=== PATIENT | male | born 1975 | race Caucasian/White ===

== ENCOUNTER 2024-01-21 13:52 | Outpatient (OUT) | payer OTHER, SELFPAY ==
--- NOTE | 2024-01-21 | XR_ITS ---
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 CLINICAL INDICATION: 48 years Male spondylosis of sacral sacrococcygeal region FINDINGS: There is no evidence of fractures , subluxation or other acute osseous abnormalities. Specifically, there is no evidence of dynamic subluxation on lateral flexion and extension views. There is mild scattered intervertebral disc space degenerative changes best seen at L2-L3. There is mild mid and lower lumbar spine facet degenerative changes. There is evidence of moderate colonic stool best seen right colon Sacroiliac joints show no abnormalities. XR/XR lumbar spine min 4V IMPRESSION: These radiographic views of the lumbar spine show no evidence of acute abnormalities. Mild scattered degenerative spondylosis. Electronically authenticated by: MAGDY KURTZ Date: 01/21/2024 15:48
--- NOTE | 2024-01-21 | XR_ITS ---
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 CLINICAL INDICATION: 48 years Male neck pain FINDINGS: There is no evidence of fractures , subluxation or other acute osseous abnormalities. Specifically, there is no evidence of dynamic subluxation on lateral flexion and extension views. There is some limitation in evaluating the cervical thoracic junction and lateral view due to overlying bone and soft tissues of the shoulders. There is mild to moderate degenerative disc change at C5-6 level. There is mild multilevel cervical facet degenerative changes. The visualized soft tissue show no abnormalities in these projections. XR/XR cervical spine w flex/ext IMPRESSION: These radiographic views of the cervical spine show no evidence of acute abnormalities. Mild to moderate C5-6 degenerative disc changes. Scattered facet degenerative changes. No other abnormalities identified. Electronically authenticated by: MAGDY KURTZ Date: 01/21/2024 15:34
== END 2024-01-21 13:53 | disposition home or self-care (01) ==
PROVIDERS: Visit Provider Anesthesiology
DX: M47.818 Spondylosis without myelopathy or radiculopathy, sacral and sacrococcygeal region (principal); M46.1 Sacroiliitis, not elsewhere classified; M47.817 Spondylosis without myelopathy or radiculopathy, lumbosacral region; M54.2 Cervicalgia
CPT/HCPCS: 72052; 72110

== ENCOUNTER 2025-04-02 03:44 | Emergency (ER) | payer OTHER, SELFPAY ==
[2025-04-02 03:51] VITALS: BP 170/100; PULSE 71; TEMP 36.7; O2SAT 97; BMI 26.6
--- OUTSIDE RECORDS SUMMARY | 2025-04-02 03:54 | XMS_ITS | CCD ---
Author Organization [facility] Care Team Providers Care Environmental Sampling Technician Name Role Phone JEFF ADAN Admitting Unavailable JEFF ADAN Attending Unavailable REQUEST, NONE LISTED Primary Care Unavailable LIDA COLLADO Admitting Unavailable LIDA COLLADO Attending Unavailable LIDA COLLADO Consulting Unavailable REQUEST, NONE LISTED Primary Care Unavailable ZEHRA ARAUJO Admitting Unavailable ZEHRA ARAUJO Attending Unavailable ONELIA HOUGH Consulting Unavailable ZEHRA ARAUJO Consulting Unavailable Jeff Adan Unavailable [facility] Primary Care Provider MD Jeff Adan Attending Provider [facility] Primary Care Provider Jeff Adan MD Attending Provider Jeff Adan Attending Unavailable Jeff Adan Admitting Unavailable [facility] Primary Care Unavaila ble Allergies Allergy Classification Reported Allergen(s) Allergy Type Date of Onset Reaction(s) Facility (5 sources) Acetaminophen / HYDROcodone Drug Allergy stomach upset [facility] Other (4 sources) Acetaminophen Drug Allergy 06-09-20 20 Gastrointestinal Upset, Gastrointestinal Upset, stomach upset [facility] (5 sources) HYDROcodone; Translations: [hydrocodone] Drug Allergy 06-09-20 20 Gastrointestinal Upset, Gastrointestinal Upset, stomach upset [facility] Medications Current Medications Medication Drug Class(es) Dates Sig (Normalized) Sig (Original) [place] (No Known Home Meds) (5 sources) Start: 06-09-2020 [place] (No Known Home Meds) Active June 09, 2020 12:00am Start: 06-09-2020 [place] (No Kn own Home Meds) Active June 08, 2020 11:00pm Completed/Discontinued Medications Medication Drug Class(es) Dates Sig (Normalized) Sig (Original) acetaminophen 325 mg / HYDROcodone bitartrate 5 mg oral tablet (5 sources) Opioid Agonist Start: 11-08-2017 End: 12-29-2017 Hydrocodone-Aceta minophen ([place]) 5-325 mg tablet Discontinued 1 TAB PO every 6 to 8 hours as needed for pain November 08, 2017 December 29, 2017 9:28am acetaminophen 325 mg / oxyCODONE hydrochloride 5 mg oral tablet (5 sources) Opioid Agonist Start: 06-09-2020 End: 12-28-2022 take 1 tablet by mouth every six hours as needed for pain Oxycodone-Acetami nophen (Percocet) 5-325 mg tablet Discontinued 1 TAB PO Q6H as needed for pain 5 June 09, 2020 December 28, 2022 10:16am acyclovir 800 mg oral tablet (5 sources) Herpesvirus Nucleoside Analog DNA Polymerase Inhibitor, Herpes Simplex Virus Nucleoside Analog DNA Polymerase Inhibitor, Herpes Zoster Virus Nucleoside Analog DNA Polymerase Inhibitor Start: 03-31-2018 End: 04-10-2018 take 5 tablets by mouth every twenty-four hours Acyclovir 800 mg tablet Discontinued 800 MG PO 5 times per day 50 March 30, 2018 11:00pm April 08, 2018 11:00pm April 09, 2018 11:01pm while awake; give 5 doses in 24 hours atomoxetine 60 mg oral capsule (5 sources) Norepinephrine Reuptake Inhibitor Start: 05-02-2018 End: 06-15-2018 take 1 capsule by mouth once daily Atomoxetine (Strattera) 60 mg Capsule Discontinued 60 MG PO Daily May 01, 2018 11:00pm June 15, 2018 7:56am cephalexin 500 mg oral capsule (10 sources) Cephalosporin Antibacterial Start: 06-24-2019 End: 06-09-2020 take 1 capsule by mouth three times daily Cephalexin 500 mg Capsule Discontinued 500 MG PO Three times daily June 23, 2019 11:00pm June 09, 2020 11:46am Start: 05-03-2018 End: 05-10-2018 take 1 capsule by mouth four times daily Cephalexin (Keflex) 500 mg capsule Discontinued 500 MG PO Four times daily 28 May 02, 2018 11:00pm May 08, 2018 11:00pm May 09, 2018 11:02pm cyclobenzaprine hydrochloride 10 mg oral tablet (5 sources) Muscle Relaxant Start: 10-13-2017 End: 11-08-2017 take 1 tablet by mouth three times daily as needed for muscle spasms Cyclobenzaprine 10 mg tablet Discontinued 10 MG PO Three times daily as needed for muscle spasm October 13, 2017 12:00am November 08, 2017 10:48am dicloxacillin 500 mg oral capsule (5 sources) Penicillin-class Antibacterial Start: 11-08-2017 End: 11-18-2017 take 1 capsule by mouth every six hours Dicloxacillin 500 mg capsule Discontinued 500 MG PO Q6H 40 November 08, 2017 12:00am November 17, 2017 12:00am November 18, 2017 12:03am naproxen 500 mg oral tablet (10 sources) Nonsteroidal Anti-inflammatory Drug Start: 10-13-2017 End: 12-29-2017 take 1 tablet by mouth every twelve hours at mealtime Naproxen (Naprosyn) 500 mg tablet Discontinued 500 MG PO Q12H November 08, 2017 12:00am December 29, 2017 9:28am administer with food or milk NIFEdipine 60 mg osmotic 24 hr extended release oral tablet (5 sources) Dihydropyridine Calcium Channel Radha Start: 09-01-2017 End: 06-15-2018 take 1 tablet by mouth once daily Nifedipine 60 mg tablet extended release 24hr Discontinued 60 MG PO Daily August 31, 2017 11:00pm June 15, 2018 7:56am omeprazole 40 mg delayed release oral capsule (5 sources) Proton Pump Inhibitor Start: 09-01-2017 End: 06-15-2018 take 1 capsule by mouth once daily Omeprazole 40 mg capsule,delayed release(DR/EC) Discontinued 40 MG PO Daily August 31, 2017 11:00pm June 15, 2018 7:57am oxyCODONE hydrochloride 1 mg/ml oral solution (5 sources) Opioid Agonist Start: 04-02-2018 End: 05-02-2018 take 5 mg by mouth every four to six hours as needed for pain Oxycodone 5 mg/5 mL solution Discontinued 5 MG PO EVERY 4-6 HOURS as needed for pain 200 April 02, 2018 May 02, 2018 10:37pm PARoxetine hydrochloride 40 mg oral tablet (5 sources) Serotonin Reuptake Inhibitor Start: 09-01-2017 End: 06-15-2018 Paroxetine Hcl 40 mg tablet Discontinued 20 MG PO Daily August 31, 2017 11:00pm June 15, 2018 7:57am Start: 09-01-2017 End: 06-15-2018 take 20 mg by mouth once daily Paroxetine Hcl Disconti nued 20 MG PO Daily September 01, 2017 12:00am June 15, 2018 8:57am predniSONE 20 mg oral tablet (5 sources) Start: 10-13-2017 End: 11-08-2017 take 3 tablets by mouth once daily at mealtime Prednisone 20 mg tablet Discontinued 60 MG PO Daily October 13, 2017 12:00am November 08, 2017 10:48am administer with food or milk Start: 10-13-2017 End: 11-08-2017 take 60 mg by mouth once daily at mealtime Prednisone Discontinued 60 MG PO Daily October 13, 2017 1:00am November 08, 2017 11:48am administer with food or milk sulfamethoxazole 800 mg / trimethoprim 160 mg oral tablet (10 sources) Dihydrofolate Reductase Inhibitor Antibacterial, Sulfonamide Antimicrobial Start: 06-09-2020 End: 12-28-2022 take 1 tablet by mouth twice daily Sulfamethoxazole-Trimethoprim (Bactrim Ds) 800-160 mg tablet Discontinued 1 TAB PO Twice daily June 08, 2020 11:00pm December 28, 2022 10:16am Start: 06-24-2019 End: 06-09-2020 take 1 tablet by mouth every twelve hours Sulfamethoxazole-Trimethoprim 400-80 mg Tablet Discontinued 1 TAB PO Q12H June 23, 2019 11:00pm June 09, 2020 11:46am Triamcinolone (2 sources) Corticosteroid Start: 02-04-2020 Kenalog -40 mg Jan, 60 mg Problems Problem Classification Problem Date Documented Date Episodic/Chronic External cause codes: Fall (1 source) Fall (on) (from) unspecified stairs and steps, initial encounter; Translations: [FALL ON FROM UNS STAIRS STEPS INIT] Onset: 06-26-2020 Open wounds of extremities (5 sources) Laceration of right lower leg; Translations: [Laceration without foreign body, right lower leg, initial encounter] 09-01-2017 Episodic Osteoarthritis (8 sources) Osteoarthritis of right acromioclavicular joint; Translations: [Primary osteoarthritis, right shoulder] 01-08-2024 Chronic Other connective tissue disease (8 sources) Myofascial pain; Translations: [Myalgia] 01-08-2024 Episodic Other connective tissue disease (5 sources) Rotator cuff syndrome; Translations: [Incomplete rotator cuff tear or rupture of right shoulder, not specified as traumatic] Episodic Other connective tissue disease (5 sources) Bursitis of elbow; Translations: [Other bursitis of elbow, unspecified elbow] 11-08-2017 Episodic Other connective tissue disease (3 sources) Partial thickness rotator cuff tear; Translations: [Incomplete rotator cuff tear or rupture of right shoulder, not specified as traumatic] 01-08-2024 Episodic Other nervous system disorders (8 sources) Chronic pain; Translations: [Other chronic pain] 01-12-2024 Chronic Other nervous system disorders (6 sources) Other chronic pain; Translations: [Other chronic pain] Onset: 12-06-2021 Resolved: 12-06-2021 Chronic Other non-traumatic joint disorders (3 sources) Pain in right wrist; Translations: [PAIN IN RIGHT WRIST] Onset: 06-24-2020 Episodic Other non-traumatic joint disorders (5 sources) Shoulder joint pain; Translations: [Pain in right shoulder] Episodic Other non-traumatic joint disorders (5 sources) Pain in right hip joint; Translations: [Pain in right hip] Episodic Other non-traumatic joint disorders (5 sources) Arthralgia of the pelvic region and thigh; Translations: [Pain in left hip] Episodic Skin and subcutaneous tissue infections (15 sources) Cutaneous abscess of buttock; Translations: [Cellulitis of buttock] Onset: 03-14-2020 06-24-2019 Episodic Spondylosis; intervertebral disc disorders; other back problems (20 sources) Lumbosacral spondylosis; Translations: [Spondylosis without myelopathy or radiculopathy, lumbosacral region] Onset: 12-06-2021 Resolved: 12-06-2021 Chronic Spondylosis; intervertebral disc disorders; other back problems (13 sources) Low back pain; Translations: [Low back pain] Onset: 02-14-2020 01-12-2024 Episodic Sprains and strains (6 sources) Unspecified sprain of right wrist, initial encounter; Translations: [Shoulder strain] Onset: 06-26-2020 10-13-2017 Episodic Substance-related disorders (1 source) Nicotine dependence, cigarettes, uncomplicated; Translations: [NICOTINE DEPEND CIGARETTES UNCOMP] Onset: 06-26-2020 Chronic Superficial injury; contusion (5 sources) Right lower leg contusion; Translations: [Contusion of right lower leg, initial encounter] 09-01-2017 Episodic Results Test Name Value Interpretation Reference Range Facil ity Consultation Noteon 01-25-20 Consultation Note [id number] .[id number]:127 Normal [facility] RAD - Ultrasound Reporton RAD - Ultrasound Report [id number] .[id number]:127 Normal [facility] Formson 01-21-2022 Forms [id number] .[id number]:127 Normal [facility] Patient Educationon 01-11-20 Patient Education Urology Testicular Self-Exam A self-exam of your testicles (testicular self-exam) is looking at and feeling your testicles for unusual lumps or swelling. Swelling, lumps, or pain can be caused by: ? Injuries. ? Puffiness, redness, and soreness (inflammation). ? Infection. ? Extra fluids around your testicle (hydrocele). ? Twisted testicles (testicular torsion). ? Cancer of the testicle (testicular cancer). Why is it important to do a self-exam of testicles? You may need to do self-exams if you are at risk for cancer of the testicles. You may be at risk if you have: ? A testicle that has not descended (cryptorchidism). ? A history of cancer of the testicle. ? A family history of cancer of the testicle. How to do a self-exam of testicles It is easiest to do a self-exam after a warm bath or shower. Testicles are harder to examine when you are cold. A normal testicle is egg-shaped and feels firm. It is smooth, and it is not tender. At the back of your testicles, there is a firm cord that feels like spaghetti (spermatic cord). Look and feel for changes ? Stand and hold your penis away from your body. ? Look at each testicle to check for lumps or swelling. ? Roll each testicle between your thumb and finger. Feel the whole testicle. Feel for: ? Lumps. ? Swelling. ? Discomfort. ? Check for swelling or tender bumps in the groin area. Your groin is where your lower belly (abdomen) meets your upper thighs. Contact a health care provider if: ? You find a bump or lump. This may be like a small, hard bump that is the size of a pea. ? You find swelling. ? You find pain. ? You find soreness. ? You see or feel any other changes. Summary ? A self-exam of your testicles is looking at and feeling your testicles for lumps or swelling. ? You may need to do self-exams if you are at risk for cancer of the testicle. ? You should check each of your testicles for lumps, swelling, or discomfort. ? You should check for swelling or tender bumps in the groin area. Your groin is where your lower belly (abdomen) meets your upper thighs. This information is not intended to replace advice given to you by your health care provider. Make sure you discuss any questions you have with your health care provider. Document Released: 02/02/2010 Document Revised: 02/27/2020 Document Reviewed: 10/02/2017 Desk Patient Education ? 2020 [employer]. Varicocele A varicocele is a swelling of veins in the scrotum. The scrotum is the sac that contains the testicles. Varicoceles can occur on either side of the scrotum, but they are more common on the left side. They occur most often in teenage boys and young men. In most cases, varicoceles are not a serious problem. They are usually small and painless and do not require treatment. Tests may be done to confirm the diagnosis. Treatment may be needed if: ? A varicocele is large, causes a lot of pain, or causes pain when exercising. ? Varicoceles are found on both sides of the scrotum. ? A varicocele causes a decrease in the size of the testicle in a growing adolescent. ? The person has fertility problems. What are the causes? This condition is the result of valves in the veins not working properly. Valves in the veins help to return blood from the scrotum and testicles to the heart. If these valves do not work well, blood flows backward and backs up into the veins, which causes the veins to swell. This is similar to what happens when varicose veins form in the leg. What are the signs or symptoms? Most varicoceles do not cause any symptoms. If symptoms do occur, they may include: ? Swelling on one side of the scrotum. The swelling may be more obvious when you are standing up. ? A lumpy feeling in the scrotum. ? A heavy feeling on one side of the scrotum. ? A dull ache in the scrotum, especially after exercise or prolonged standing or sitting. ? Slower growth or reduced size of the testicle on the side of the varicocele (in young males). ? Problems with fathering a child (fertility). This can occur if the testicle does not grow normally or if the condition causes problems with the sperm, such as a low sperm count or sperm that are not able to reach the egg (poor motility). How is this diagnosed? This condition is diagnosed based on: ? Your medical history. ? A physical exam. Your health care provider may inspect and feel (palpate) the scrotal area to check for swollen or enlarged veins. ? An ultrasound. This may be done to confirm the diagnosis and to help rule out other causes of the swelling. How is this treated? Treatment is usually not needed for this condition. If you have any pain, your health care provider may prescribe or recommend medicine to help relieve it. You may need regular exams so your health care provider can monitor the varicocele to ensure that it does not cause problems. When further treatment (more content not included)... [facility] Provider Letteron 01-11-2022 Provider Letter January 11, 2022 JOSSE CARDONA [address] [place] [address] JOSSE CARDONA 1975 To Whom It May Concern, Please excuse above patient from work. Date of Appointment: 01/11/22 May Return to Work On: 01/11/22 Sincerely, [facility] [address] [place] [address] [facility] Urology Office/Clinic Noteon 01-11-2022 Urology Office/Clinic Note Chief Complaint Pt is here for left varicocele HPI Staff Josse is a 46 y.o. male new patient here for possible varicocele. Referred by Tigre Rolle. Pt seen DLS in 2011 for left varicocele. Pt states he wears compression shorts to help. Scrotal US [facility] [place] [place]. Dysuria: denies Incomplete bladder emptying: denies Hematuria: denies Frequency: yes due to fluid intake Urgency: denies Nocturia: 1x on occasion Stream: hesitant to start Leaking: denies Post void dripping: denies Wearing pads/ Depends: denies Urge incontinence: denies Stress incontinence: denies Incontinence without Sensory Awareness: denies Abdominal pain: denies Flank pain: denies Sexual complaints: _ History of Present Illness Pt is here for referral for possible varicocele. Pt had Scrotal US 08/2021 Pt is having Left scrotal pain that has been going on for a few years. Pt did not give urine sample Pt has no associated symptoms, no fever, no chills, no flank pain. Review of Systems PHQ Score Initial Depression Screen Score: 0 ROS - Provider Constitutional: denies weight loss, denies hot flashes. Eyes: denies eye problems. Gastrointestinal: denies nausea, denies vomiting. Cardiovascular: denies chest pain or angina. Integumentary: no dryness Musculoskeletal: denies musculoskeletal symptoms. ENMT: denies otolaryngeal symptoms. Respiratory: no shortness of breath. Heme/Lymph: denies easy bleeding tendency, denies easy bruising tendency. Psychiatric: no confusion, no anxiety. Genitourinary: denies dysuria, denies hematuria, denies discharge, denies urinary frequency, denies urinary hesitancy, mild nocturia, denies incontinence, denies genital sores, denies decreased libido, and denies erectile dysfunction. Physical Exam Vitals & Measurements HR: 77(Peripheral) BP: 132/85 HT: 175.0 cm HT: 175 cm WT: 74.1 kg WT: 74.1 kg BMI: 24.2 General Appearance: alert, no distress, well nourished, well developed male. Head: normocephalic . Eyes: normal orbit and globe. ENMT: normal examination of external ears. Chest: Lungs CTA, respirations non labored. Cardiovascular: regular rate and rhythm. Abdomen: soft, non distended, no tenderness, no mass or organomegaly, no hernia. Genitourinary: normal scrotum, normal testes, normal urethra, Tender to touch on Left epididymis, normal vas deferens/spermatic cord. Flank Pain: none. Bladder: nonpalpable. Penis: normal shaft, normal glans. Prostate: normal prostate, estimated weight 35 gms, no hard nodule observed. Lymph Nodes: unremarkable palpation of the cervical area. Skin: warm, dry, no bruising. Psychiatric: cooperative, affect appropriate for age, normal judgement, euthymic mood. Assessment/Plan Pt will call with update in a couple weeks. May refer pt to [facility]. 1. Epididymitis (N45.1: Epididymitis) Left sided, tender to touch The patient possibly has epididymitis. Anti-inflammatory medicines can also be helpful. Pt should continue to wear scrotal support. Hot baths are also helpful in easing the discomfort. 2. 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 Donahue. Pt has been wearing scrotal support to help with pain 3. Scrotal pain (N50.82: Scrotal pain) Pt to continue to wear scrotal support The patient will add Aleve for a couple weeks. The patient had scrotal ultrasound performed back in August 2021 demonstrating a possible left-sided varicocele and a slightly larger left epididymis without any note of increased blood flow in that area. He does have a history of a left varicocelectomy performed by Dr. Donahue in the distant past as well. Overall the patient has left-sided scrotal discomfort. Unclear as to the exact etiology. The possibility of a grade 2 varicocele does exist but this is not well demonstrated on physical examination with Valsalva maneuver. He has some element of epididymal tenderness on initial examination but not consistent even with repeat palpation of the inferior pole of the left epididymis. I recommended nonsteroidal anti-inflammatories, perhaps in the form of Aleve on a twice daily basis for at least 1 to 2weeks in combination with sitz baths and some scrotal support. Due to the longevity of the patient's discomfort and previous a surgical intervention with a varicocele repair, is my recommendation that we get a second opinion. I will be calling Dr. Xavier Brooke to see who in his department he would recommend and then get back with the patient after that. Patient is in agreement with this plan. Follow-up With When Contact Information Jorge GRAYSON MD, URL Only if needed Additional Instructions: Patient Education Testicular Self-Exam, [id number] Varicocele I, Halle Rosales, personally scribed for Dr. Grayson on 01/11/2022 09:25:36. . Documentation recorded by the scribe, Halle Donald, accurately reflects the services(s) I performe (more content not included)... Normal [facility] Comment on above: Result Comment: Elec tronically Signed By: Jorge GRAYSON MD\.br\Date and Time Signed: 01/11/22 09:29 EST\.br\Electronically Co-Signed By: Halle Rosales\.br\Date and Time Co-Signed: 01/11/22 09:26 EST XR HAND RT MIN 3Von 06-24-20 20 XR HAND RT MIN 3V PROCEDURE: XR WRIST RT MIN 3 V, XR HAND RT MIN 3V HISTORY: Unspecified fall ; acute medial hand and wrist pain after falling COMPARISON: None. FINDINGS: BONES:No fracture, acute abnormality, or significant arthropathy. SOFT TISSUES:No visible soft tissue swelling. EFFUSION:None visible. OTHER: Negative. IMPRESSION: 1. No acute bone abnormality. Electronically authenticated by: ONELIA HOUGH Date: 2020-06-24 09:17 Normal [facility] CBC AUTO DIFFon 03-15-2020 Basophils (Bld) [#/Vol] 0.1 103/ul Normal 0.0-0.1 [facility] Comment on above: Performed By: #### C BC #### [facility] [address], [place] [address] Elizabeth Marleni Basophils/100 WBC (Bld) 0.5 % Normal 0.2-2.0 [facility] Comment on above: Performed By: #### C BC #### [facility] [address], [place] [address] Elizabeth Marleni Eosinophils (Bld) [#/Vol] 0.3 103/ul Normal 0.0-0.7 [facility] Comment on above: Performed By: #### C BC #### [facility] [address] [place] [address] Elizabeth Marleni Eosinophils/100 WBC (Bld) 2.0 % Normal 0.9-7.0 [facility] Comment on above: Performed By: #### C BC #### [facility] [address] [place] [address] Elizabethmichelle Barnesen Erythrocyte distribution width (RBC) [Ratio] 11.8 % Normal 11.0-15.0 [facility] Comment on above: Performed By: #### C BC #### [facility] [address] [place] [address] Elizabeth Marleni Hematocrit (Bld) [Volume fraction] 41.7 % Critically low 42.0-54.0 [facility] Comment on above: Performed By: #### C BC #### [facility] [address] [place] [address] Elizabeth Marleni Hemoglobin (Bld) [Mass/Vol] 13.8 g/dL Critically low 14.0-18.0 [facility] Comment on above: Performed By: #### C BC #### [facility] [address] [place] [address] Elizabeth Marleni IG # 0.04 10e3/ul Critically high 0.00-0.03 [facility] Comment on above: Performed By: #### C BC #### [facility] [address] [place] [address] Elizabeth Marleni IG % 0.3 % Normal 0.0-0.5 [facility] Comment on above: Performed By: #### C BC #### [facility] [address] [place], [place] [id number] Elizabeth Marleni Lymphocytes (Bld) [#/Vol] 2.7 103/ul Normal 1.2-3.8 [facility] Comment on above: Performed By: #### C BC #### [facility] [address] [place] [address] Elizabeth Marleni Lymphocytes/100 WBC (Bld) 19.1 % Critically low 20.5-60.0 [facility] Comment on above: Performed By: #### C BC #### [facility] [address] [place], [place] [id number] Elizabethmichelle Yepez MANUAL DIFF REQ NO Normal [facility] Comment on above: Performed By: #### C BC #### [facility] [address] [place], [place] [id number] Elizabeth Marleni MCH (RBC) [Entitic mass] 30.0 pg Normal 25.9-34.0 [facility] Comment on above: Performed By: #### C BC #### [facility] [address] [place], [place] [id number] Elizabethmichelle Yepez MCHC (RBC) [Mass/Vol] 33.1 g/dL Normal 29.9-35.2 [facility] Comment on above: Performed By: #### C BC #### [facility] [address] [place], [place] [id number] Elizabeth Marleni MCV (RBC) [Entitic vol] 90.7 fL Normal 80.0-94.0 [facility] Comment on above: Performed By: #### C BC #### [facility] [address] [place], [place] [id number] Elizabeth Marleni Monocytes (Bld) [#/Vol] 1.3 103/ul Critically high 0.3-0.8 [facility] Comment on above: Performed By: #### C BC #### [facility] [address] [place], [place] [id number] Elizabeth Marleni Monocytes/100 WBC (Bld) 9.3 % Normal 1.7-12.0 [facility] Comment on above: Performed By: #### C BC #### [facility] [address] [place], [place] [id number] Elizabeth Marleni Neutrophils (Bld) [#/Vol] 9.6 103/ul Critically high 1.4-6.5 [facility] Comment on above: Performed By: #### C BC #### [facility] [address] [place], [place] [id number] Elizabeth Marleni Neutrophils/100 WBC (Bld) 68.8 % Normal 43.0-75.0 [facility] Comment on above: Performed By: #### C BC #### [facility] [address] [place] [address] Elizabeth Marleni Platelet mean volume (Bld) [Entitic vol] 9.3 fL Critically low 9.5-13.5 [facility] Comment on above: Performed By: #### C BC #### [facility] [address] [place], [place] [id number] Elizabeth Marleni Platelets (Bld) [#/Vol] 333 103/ul Normal 150-450 [facility] Comment on above: Performed By: #### C BC #### [facility] [address] [place], [place] [id number] Elizabeth Marleni RBC (Bld) [#/Vol] 4.60 106/ul Critically low 4.70-6.10 [facility] Comment on above: Performed By: #### C BC #### [facility] [address] [place] [address] Elizabeth Marleni WBC (Bld) [#/Vol] 14.0 103/ul Critically high 4.0-11.0 [facility] Comment on above: Performed By: #### C BC #### [facility] [address] [place] [address] Elizabeth Barnesen PROF CHEM 8 (BAS METB)on Anion gap [Moles/Vol] 11.0 mmol/L Normal [facility] Comment on above: Performed By: #### B MP #### [facility] [address] [place], [place] [id number] Elizabeth Marleni Calcium [Mass/Vol] 9.0 mg/dL Normal 8.4-10.2 [facility] Comment on above: Performed By: #### B MP #### [facility] [address] [place], [place] [phone] Elizabeth Marleni Chloride [Moles/Vol] 98 mmol/L Normal 98-107 [facility] Comment on above: Performed By: #### B MP #### [facility] [address] [place], [place] [address] Elizabeth Marleni CO2 [Moles/Vol] 28.4 mmol/L Normal 22.0-30.0 [facility] Comment on above: Performed By: #### B MP #### [facility] [address] [id number] Elizabeth Marleni Creatinine [Mass/Vol] 0.90 mg/dL Normal 0.66-1.25 [facility] Comment on above: Performed By: #### B MP #### [facility] [address] [id number] Elizabeth Marleni EGFR-AF MOROCCAN >60 Normal >=60 [facility] Comment on above: Performed By: #### B MP #### [facility] [address] [id number] Elizabeth Marleni EGFR-NON AF MOROCCAN >60 Normal >=60 [facility] Comment on above: Performed By: #### B MP #### [facility] [address] [address] Elizabeth Marleni Glucose [Mass/Vol] 95 mg/dL Normal 74-106 [facility] Comment on above: Performed By: #### B MP #### [facility] [address] [id number] Elizabeth Marleni Potassium [Moles/Vol] 3.4 mmol/L Normal 3.4-5.0 [facility] Comment on above: Performed By: #### B MP #### [facility] [address] [id number] Elizabeth Marleni Sodium [Moles/Vol] 134 mmol/L Critically low 137-145 [facility] Comment on above: Performed By: #### B MP #### [facility] [address] [id number] Elizabeth Marleni Urea nitrogen [Mass/Vol] 10.0 mg/dL Normal 9.0-20.0 [facility] Comment on above: Performed By: #### B MP #### [facility] [address] [id number] Elizabeth Marleni Urea nitrogen/Creatinine [Mass ratio] 11.1 mg/mg Normal [facility] Comment on above: Performed By: #### B MP #### [facility] [address] [id number] Elizabeth Yepez Vital Signs Date Time Vital Sign Value Performing Clinician Facility 11-27-2024 10:12-0500 Diastolic blood pressure 93 mm[Hg] [facility] Work Phone: [facility] 11-27-2024 10:12-0500 Heart rate 60 /min [facility] Work Phone: [facility] 11-27-2024 10:12-0500 Respiratory rate 16 /min [facility] Work Phone: [facility] 11-27-2024 10:12-0500 SaO2% (BldA) [Mass fraction] 96 % [facility] Work Phone: [facility] 11-27-2024 10:12-0500 Systolic blood pressure 137 mm[Hg] [facility] Work Phone: [facility] 11-27-2024 09:15-0500 Inhaled oxygen flow rate 2 L/min [facility] Work Phone: [facility] 11-27-2024 08:06-0500 Body height 172.72 cm [facility] Work Phone: [facility] 11-27-2024 08:06-0500 Body weight 79.37 kg [facility] Work Phone: [facility] 09-17-2024 11:45-0400 Body weight 80.28 kg [facility] 09-17-2024 11:45-0400 Diastolic blood pressure 64 mm[Hg] [facility] 09-17-2024 11:45-0400 Systolic blood pressure 122 mm[Hg] [facility] 01-12-2024 12:12-0500 Body weight 78.01 kg [facility] 12-28-2022 11:35-0500 Diastolic blood pressure 82 mm[Hg] Services [facility] Work Phone: [facility] 12-28-2022 11:35-0500 Heart rate 78 /min [facility] Work Phone: [facility] 12-28-2022 11:35-0500 Respiratory rate 16 /min [facility] Work Phone: [facility] 12-28-2022 11:35-0500 SaO2% (BldA) [Mass fraction] 96 % [facility] Work Phone: [facility] 12-28-2022 11:35-0500 Systolic blood pressure 131 mm[Hg] [facility] Work Phone: [facility] 12-28-2022 10:48-0500 Inhaled oxygen flow rate 3 L/min [facility] Work Phone: [facility] 12-28-2022 10:19-0500 Body height 172.72 cm [facility] Work Phone: [facility] 12-28-2022 10:19-0500 Body temperature 98.8 [degF] [facility] Work Phone: [facility] 12-28-2022 10:19-0500 Body weight 79.37 kg [facility] Work Phone: [facility] 12-16-2022 12:15-0500 Body height 172.72 cm Jeff Adan Other [facility] Other 12-16-2022 12:15-0500 Body mass index (BMI) [Ratio] 26.21 kg/m2 Jeff Adan Other [facility] Other 12-16-2022 12:15-0500 Body weight 78.2 kg Jeff Adan Other [facility] Other 12-16-2022 12:15-0500 Diastolic blood pressure 84 mm[Hg] Jeff Adan Other [facility] Other 12-16-2022 12:15-0500 SaO2% (BldA) [Mass fraction] 97 % Jeff Santizoky Other [facility] Other 12-16-2022 12:15-0500 Systolic blood pressure 132 mm[Hg] Jeff Loco Other [facility] Other 12-06-2021 17:00-0500 Body height 172.72 cm Jeff Santizoky Other [facility] Other 12-06-2021 17:00-0500 Body mass index (BMI) [Ratio] 23.57 kg/m2 Jeff Loco Other [facility] Other 12-06-2021 17:00-0500 Body weight 70.31 kg Jeff Loco Other [facility] Other 12-06-2021 17:00-0500 Diastolic blood pressure 80 mm[Hg] Jeff Loco Other [facility] Other 12-06-2021 17:00-0500 SaO2% (BldA) [Mass fraction] 99 % Jeff Loco Other [facility] Other 12-06-2021 17:00-0500 Systolic blood pressure 120 mm[Hg] Jeff Loco Other [facility] Other Encounters Encounter Date Encounter Type Care Provider Facility Start: 11-27-2024 End: 11-27-2024 Admission to same day surgery center [facility] Work Phone: [facility] Work Phone: Start: 11-27-2024 End: 11-27-2024 ambulatory [facility] Work Phone: [facility] Work Phone: Start: 09-17-2024 End: 09-17-2024 ambulatory [facility] Work Phone: Start: 09-17-2024 End: 09-17-2024 Patient encounter procedure [facility] Work Phone: Start: 01-12-2024 End: 01-12-2024 ambulatory [facility] Work Phone: Start: 01-12-2024 End: 01-12-2024 Patient encounter procedure [facility] [place] Work Phone: Start: 12-28-2022 (PROC) PROCEDURE Jeff Adan [facility] Start: 12-28-2022 End: 12-28-2022 Admission to same day surgery center [facility] Work Phone: [facility] Work Phone: Start: 12-28-2022 End: 12-28-2022 ambulatory [facility] Work Phone: [facility] Work Phone: Start: 12-20-2022 End: 12-20-2022 ambulatory [facility] Work Phone: [facility] Work Phone: Start: 12-20-2022 End: 12-20-2022 Patient encounter procedure [facility] Work Phone: [facility] [place] Work Phone: Start: 12-16-2022 End: 12-16-2022 ambulatory Jeff Adan Other [facility] Other Start: 12-16-2022 Office outpatient vi sit 25 minutes Jeff Adan [facility] [place] Start: 12-06-2021 End: 12-06-2021 ambulatory Jeff Adan Other [facility] Other Start: 12-06-2021 Office outpatient vi sit 25 minutes Jeff Adan [facility] Start: 11-23-2021 (Procedure) Angelo Adan [facility] Start: 11-23-2021 End: 11-23-2021 ambulatory Jeff Adan Other [facility] Other Start: 11-09-2021 (Procedure) Angelo Adan [facility] Start: 11-09-2021 End: 11-09-2021 ambulatory Jeff Adan Other [facility] Other Start: 06-24-2020 End: 06-24-2020 Patient encounter procedure NONE LISTED REQUEST Facility: Start: 03-14-2020 End: 03-15-2020 Patient encounter procedure NONE LISTED REQUEST Facility: Start: 02-14-2020 End: 08-31-2020 Patient encounter procedure JEFF ADAN Facility: Procedures Date Procedure Procedure Detail Performing Clinician Start: 11-27-2024 [facility] N[facility] Radio Frequ ency (Bilateral) [facility] [employer] Phone: Start: 12-28-2022 DH Nerve Radio Frequ ency (Bilateral) [facility] [employer] Phone: Start: 12-20-2022 X-ray of lumbar spin e, four views [facility] Phone: Plan of Treatment Date Care Activity Detail Author Start: 11-27-2024 [facility] Start: 12-28-2022 [facility] Patient Education [facility] Work Phone: Patient referral [facility] Work Phone: XR Cervical spine 4 Views [facility] XR Lumbar spine 4 Views [facility] Immunizations Immunization Date Immunization Notes Care Provider Jayda bowling 09-01-2017 tetanus toxoid, redu aleah diphtheria toxoid, and acellular pertussis vaccine, adsorbed [facility] Work Phone: [facility] Payers Date Payer Category Payer Self-pay [id number] 2024 Self-pay [id number] 1974 Unknown [id number] 1974 Unknown [id number] 1974 Unknown [id number] 1959 Unknown [id number] Medicaid [id number] Unknown [facility] Services [id number] Unknown [id number] Social History Date Type Detail Facility Unknown if ever smoked [facility] Other Sex Assigned At Sex Assigned At Bir th [facility] Other Start: 06-09-2020 End: 06-09-2020 Tobacco smoking status [facility] Smoker (finding) [facility] Start: 1975 Sex Assigned At Male F [facility] Start: 11-27-2024 Tobacco smoking status [facility] Ex-smoker (finding) [facility] Start: 11-27-2024 Sex Male (finding) [facility] Medical Equipment Procedure Code Equipment Code Equipment Origin al Text Equipment Identifier Dates Shoulder arthroscopy ANCHOR SUTU RE FT III [id number] FDA Start: 01-02-2018 Shoulder arthroscopy ANCHOR SUTU RE FT III [id number] FDA Start: 01-02-2018 Shoulder arthroscopy ANCHOR SUTU RE FT III [id number] FDA Start: 01-02-2018 Shoulder arthroscopy ANCHOR SUTU RE FT III [id number] FDA Start: 01-02-2018 Shoulder arthroscopy ANCHOR SUTU RE FT III [id number] FDA Start: 01-02-2018 Goals Date Patient Goal Desired Activity /State Procedure note 11-27-2024 Note Date & Type Note Facility 11-27-2024 Procedure note [facility] enter Evaluation note 09-17-2024 Note Date & Type Note Facility 09-17-2024 Evaluation note Diagnosis Onset Date Resolution Chronic pain acute August 11:43am Lumbosacral spondylosis acute O ctober 2023 11:43am Sacroiliitis acute August 11:43am [facility] Work Phone: Evaluation note 12-16-2022 Note Date & Type Note Facility 12-16-2022 Evaluation note Encounter Date Diagnosis Assessment Notes Nov, Sacroiliitis (ICD-10 - M46.1) Stable, proceed with treatment plan. 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 He was last seen 1 year ago. He voices complaints of low back pain with numbness and tingling down bilateral lower extremities to the knees. Clinically his pain presents as a combination of sacral and lumbar arthritis. I recommend proceeding with a repeat bilateral sacral lateral branch RFA as this provided him with significant pain relief for almost 1 year. Risks and benefits of procedure explained to patient; patient verbalizes understanding. Nov, Chronic pain (ICD-10 - G89.29) Proceed with current treatment plan. Nov, Lumbosacral spondylosis (ICD-10 - M47.817) Consider lumbar facet medial branch nerve block in the future, if applicable. 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 Patient reports at least 80-90% pain relief and increased function following procedure. Overall, patient appears to be doing well and I do not recommend further injections at this time. I recommend he increase his activities as tolerated. He is counseled against any excessive bending or twisting. He is advised to call the office if his pain returns. Nov, Chronic pain (ICD-10 - G89.29) Proceed with current treatment plan. Nov, Lumbosacral spondylosis (ICD-10 - M47.817) Consider lumbar facet medial branch nerve block in the future, if applicable. [facility] Other History general Narrative - Reported 12-21-2017 Note Date & Type Note Facility 12-21-2017 History general N arrative - Reported Type Medical History back pain, chronic Surgical History varicocele 2009 Surgical History Rt rotator cuff repair 12/2017 Hospitalization History see above [facility] Other Evaluation note Note Date & Type Note Facility Evaluation note No Information [employer] Other Evaluation note Note Date & Type Note Facility Evaluation note No assessment information availa [facility] Work Phone: Evaluation note Note Date & Type Note Facility Evaluation note Diagnosis Onset Date Chronic pain acute Lumbosacral spondylosis acut e Neck pain acute Sacroiliitis acute [id number] [facility] Work Phone: Evaluation note Note Date & Type Note Facility Evaluation note Diagnosis Onset Date Chronic pain acute Lumbosacral spondylosis acut e Sacroiliitis [facility] Work Phone: Summary Purpose Family History No Family History Records Found Relationship Condition Age at Onset Recorded Date/T tyler family member Malignant neoplasm of breast Unknown grandparent Malignant neoplasm of eye Unknown Relationship Condition Age at Onset Recorded Date/T tyler aunt Malignant neoplasm of breast Unknown grandparent Malignant neoplasm of eye Unknown Advance Directives No Advanced Directives Records Found Advance Directive Response Recorded Date/ Time Advance Directives No September 01, 2017 1:40pm Advance Directive Response Recorded Date/ Time Advance Directives No September 01, 2017 2:40pm Chief Complaint and Reason for Visit Chief Complaint M47.818 M46.1 G89.29 M47.817 Chief Complaint M47.818 M46.1 G89.29 M47.817 Back Pain Chief Complaint increase low back pa in Reason for Visit Chronic pain Lumbosacral spondylosis Neck pain Sacroiliitis [id number] Chief Complaint back pain Reason for Visit Chronic pain Lumbosacral spondylosis Sacroiliitis Chief Complaint Admit Date back pain September 17, 2024 1 1:43am Back Pain November 27, 2024 7: 52am Reason for Visit Admit Date Chronic pain September 17, 2024 1 1:43am Lumbosacral spondylosis September 17 11:43am Sacroiliitis September 17, 2024 1 1:43am Additional Source Comments (unrecognized sect ion and content) No Status Records FoundNo Status Records FoundNo Status Records Found INFORMATION SOURCE (unrecogn ized section and content) DATE CREATED AUTHOR 09/01/2020 [facility] DATE CREATED AUTHOR AUTHOR'S ORGANIZ ATION 02/05/2022 [facility] DATE CREATED AUTHOR AUTHOR'S ORGANIZ ATION 12/08/2024 [facility] REASON FOR VISIT (unrecogniz ed section and content) RIGHT SACRAL LATERAL RFA* LEFT SACRAL LATERAL RFAFOLLOW UP AFTER NIKOLAY SACRAL LATERAL RFALOW BACK PAIN/NUMBNESS LOWER EXTREMITIESNIKOLAY SACRAL LATERAL RFA/EL Care Teams (unrecognized sec tion and content) Team Status: Inactive Member Role Status Dates Services Family [facility] Primary Care Provider Active Jeff Adan MD Attending Provider Active Team Status: Active Member Role Status Dates Services Family [facility] Primary Care Provider Active Team Status: Inactive Member Role Status Dates Services [facility] Primary Care Provider Active Start: January 12, 2024 End: January 12, 2024 Jeff Adan MD Attending Provider Active Sta rt: January 12, 2024 End: January 12, 2024 Team Status: Inactive Member Role Status Dates Services [facility] Primary Care Provider Active Start: September 17, 2024 End: September 17, 2024 Jeff Adan MD Attending Provider Active Sta rt: September 17, 2024 End: September 17, 2024 Team Status: Inactive Member Role Status Dates Services [facility] Primary Care Provider Active Start: November 27, 2024 End: November 27, 2024 Jeff Adan MD Attending Provider Active Sta rt: November 27, 2024 End: November 27, 2024 Goals (unrecognized section and content) Goals may be documented in a n alternate section FOR RECORDS PERTAINING TO PATIENTS WHO ARE OR HAVE BEEN ENROLLED IN A CHEMICAL DEPENDENCY/SUBSTANCEABUSE PROGRAM, SOME INFORMATION MAY BE OMITTED. This clinical summary was aggregated from multiple sources. Caution should be exercised in using it in the provision of clinical care. This summary normalizes information from multiple sources, and as a consequence, information in this document may materially change the coding, format and clinical context of patient data. In addition, data may be omitted in some cases. CLINICAL DECISIONS SHOULD BE BASED ON THE PRIMARY CLINICAL RECORDS. [facility] [employer] provides no warranty or guarantee of the accuracy or completeness of information in this document.
--- NOTE | 2025-04-02 03:59 | ED_ITS ---
HPI - Nausea/Vomiting/Diarrhea General Chief complaint: Nausea/Vomiting/Diarrhea Stated complaint: 6 MONTHS AGO HOT FLASHES, GOT WORSE Time Seen by Provider: 04/02/25 03:54 Source: patient Mode of arrival: walk-in Limitations: no limitations History of Present Illness HPI Narrative: complains of recurrent sweating and vomiting . N/V recurrent past couple of days. Episodes of on and off sweating for past 6 months but more frequent pass couple of days. Daily cigarette smoker. Has missed 2 days of work. States he use to have hypertension but it went away Related Data Home Medications ?Medication ?Instructions ?Recorded ?Confirmed No Known Home Medications 04/02/2503/20 Allergies Allergy/AdvReac Type Severity Reaction Status Date / Time No Known Drug Allergies Allergy Verified 04/02/25 03:58 Review of Systems ROS Status of ROS 10 or more systems reviewed and unremark able except as noted in history and below PFSH PFSH Social History Little interest or pleasure in doing things: not at all Feeling down, depressed, or hopeless: not at all Exam Constitutional Vital Signs, click to edit/add: Last Vital Signs Temp 98.0 F 04/02/25 03:51 Pulse 71 04/02/25 03:51 Resp 20 04/02/25 03:51 BP 149/87 H 04/02/25 05:59 Pulse Ox 97 04/02/25 03:51 O2 Del Method Room Air 04/02/25 03:51 Common normals: no apparent distress, average body habitus, oriented x3, no limitations, healthy appearing and alert [facility] Common normals: normocephalic and head/scalp atraumatic Respiratory Common normals: normal respiratory effort, no retractions, no use of accessory muscles and clear to auscultation bilaterally Cardio Common normals: regular rate, regular rhythm, S1 normal heart sound and S2 normal heart sound GI Common normals: Normal to inspection, nondistended, normoactive bowel sounds present, soft to palpation and non-tender Extremity Common normals: normal to inspection and full ROM Neuro Common normals: oriented x3, CN's II-XII intact bilaterally, moves all extremities and no focal motor deficits Psych Appearance: grossly normal Course Vital Signs Vital signs: Vital Signs Temperature 98.0 F 04/02/25 03:51 Pulse Rate 71 04/02/25 03:51 Respiratory Rate 20 04/02/25 03:51 Blood Pressure 170/100 H 04/02/25 03:51 Pulse Oximetry 97 04/02/25 03:51 Oxygen Delivery Method Room Air 04/02/25 03:51 Temperature 98.0 F 04/02/25 03:51 Pulse Rate 71 04/02/25 03:51 Respiratory Rate 20 04/02/25 03:51 Blood Pressure 149/87 H 04/02/25 05:59 Pulse Oximetry 97 04/02/25 03:51 Oxygen Delivery Method Room Air 04/02/25 03:51 MDM - Nausea/Vomiting/Diarrhea MDM Narrative Medical decision making narrative: patient presents with recurrent vomiting. no diarrhea. Ill for the past 2-3 days. No diarrhea or dyspnea. Daily smoker. labs unremarkable. zofran given. Patient vomited after po challenge. Given dose of reglan. CT abdomen pending at change of shift. Care transferred to Dr Bradford at change of shift Lab Data Labs: Lab Results 04/02/25 Range/Units 04:20 WBC 10.3 (4.0-11.0) 10^3/uL RBC 5.62 (4.70-6.10) 10^6/uL Hgb 16.6 (14.0-18.0) g/dL Hct 47.2 (42.0-54.0) % MCV 84.0 (80.0-94.0) fL MCH 29.5 (25.9-34.0) pg MCHC 35.2 (29.9-35.2) g/dL RDW 12.4 (11.0-15.0) % Plt Count 337 (150-450) 10^3/uL MPV 9.4 L (9.5-13.5) fL Neut % (Auto) 76.3 H (43.0-75.0) % Lymph % (Auto) 17.3 L (20.5-60.0) % [place] % (Auto) 5.6 (1.7-12.0) % Eos % (Auto) 0.2 L (0.9-7.0) % Baso % (Auto) 0.3 (0.2-2.0) % Neut # (Auto) 7.8 H (1.4-6.5) 10^3/uL Lymph # (Auto) 1.8 (1.2-3.8) 10^3/uL [place] # (Auto) 0.6 (0.3-0.8) 10^3/uL Eos # (Auto) 0.0 (0.0-0.7) 10^3/uL Baso # (Auto) 0.0 (0.0-0.1) 10^3/uL Abs Immat Gran (auto) 0.03 (0.00-0.03) 10^3/uL Imm/Tot Granulo (auto) 0.3 (0.0-0.5) % Sodium 136 (136-145) mmol/L Potassium 3.2 L (3.5-5.1) mmol/L Chloride 99 (98-107) mmol/L Carbon Dioxide 30.1 (21.0-32.0) mmol/L Anion Gap 10.1 BUN 17.0 (7.0-18.0) mg/dL Creatinine 1.07 (0.70-1.30) mg/dL Est GFR ( Amer) >60 (>=60 mL/min/1.73m^2) Est GFR (Non-Af Amer) >60 (>=60 mL/min/1.73m^2) BUN/Creatinine Ratio 15.9 Glucose 124 H (74-106) mg/dL Lactate 1.3 (0.4-2.0) mmol/L Calcium 9.6 (8.5-10.1) mg/dL Total Bilirubin 1.6 H (0.2-1.0) mg/dL AST 26 (15-37) U/L ALT 38 (16-63) U/L Alkaline Phosphatase 107 (46-116) U/L Troponin I High Sens 4.5 (4.0-76.1) pg/mL Total Protein 7.9 (6.4-8.2) g/dL Albumin 4.3 (3.4-5.0) g/dL Globulin 3.6 g/dL Albumin/Globulin Ratio 1.2 Lipase 18.0 (16.0-77.0) U/L Discharge Plan Discharge Chief Complaint: Nausea/Vomiting/Diarrhea Clinical Impression: Nausea & vomiting Prescriptions / Home Meds: No Action No Known Home Medications Print Language: Citizen Of [place] Referrals: Physician,Non-Staff, MD [Primary Care Provider] - 1 week
[2025-04-02] MEDS: 0.9 % SODIUM CHLORIDE 1,000 ML 1000 ML IV (04:30)
[2025-04-02] MEDS: ONDANSETRON PF 4 MG/2 ML VIAL IV (04:31)
[2025-04-02 04:33] LABS: Basophils Percent Auto 0.3 % (0.2-2.0); Eosinophils Percent Auto 0.2 % (0.9-7.0); Hematocrit 47.2 % (42.0-54.0); Hemoglobin 16.6 g/dL (14.0-18.0); Immature Granulocytes Abs Auto 0.03 10^3/uL (0.00-0.03); Immature Granulocytes Pct Auto 0.3 % (0.0-0.5); Lymphocytes Absolute Auto 1.8 10^3/uL (1.2-3.8); Lymphocytes Percent Auto 17.3 % (20.5-60.0); Mean Corpuscular HGB Conc 35.2 g/dL (29.9-35.2); Mean Corpuscular Hemoglobin 29.5 pg (25.9-34.0); Mean Platelet Volume 9.4 fL (9.5-13.5); Monocytes Absolute Auto 0.6 10^3/uL (0.3-0.8); Monocytes Percent Auto 5.6 % (1.7-12.0); Neutrophils Absolute Auto 7.8 10^3/uL (1.4-6.5); Neutrophils Percent Auto 76.3 % (43.0-75.0); Platelet Count 337 10^3/uL (150-450); Red Blood Count 5.62 10^6/uL (4.70-6.10); Red Cell Distribution Width 12.4 % (11.0-15.0); White Blood Count 10.3 10^3/uL (4.0-11.0)
[2025-04-02 04:51] LABS: Alanine Aminotransferase 38 U/L (16-63); Albumin Globulin Ratio 1.2; Albumin Level 4.3 g/dL (3.4-5.0); Alkaline Phosphatase 107 U/L (46-116); Anion Gap 10.1; Aspartate Amino Transferase 26 U/L (15-37); BUN Creatinine Ratio 15.9; Bilirubin Total 1.6 mg/dL (0.2-1.0); Calcium 9.6 mg/dL (8.5-10.1); Carbon Dioxide 30.1 mmol/L (21.0-32.0); Chloride 99 mmol/L (98-107); Estimated GFR (African America >60 (>=60 mL/min/1.73m^2); Estimated GFR (Non-African Ame >60 (>=60 mL/min/1.73m^2); Globulin 3.6 g/dL; Glucose 124 mg/dL (74-106); Potassium 3.2 mmol/L (3.5-5.1); Sodium 136 mmol/L (136-145); Total Protein 7.9 g/dL (6.4-8.2)
[2025-04-02 04:53] LABS: Lactate/Lactic Acid 1.3 mmol/L (0.4-2.0); Troponin I High Sensitivity 4.5 pg/mL (4.0-76.1)
[2025-04-02 05:59] VITALS: BP 149/87
[2025-04-02] MEDS: METOCLOPRAMIDE HCL 10 MG/2 ML VIAL IVP (06:41)
--- NOTE | 2025-04-02 07:30 | ED.GENADUL1 ---
HPI HPI - General Adult General Chief complaint: Nausea/Vomiting/Diarrhea Stated complaint: 6 MONTHS AGO HOT FLASHES, GOT WORSE Time Seen by Provider: 04/02/25 03:54 Source: patient Mode of arrival: walk-in Limitations: no limitations History of Present Illness HPI narrative: 49-year-old male presents to the emergency department for vomiting and was initially seen by Dr. Leiva and signed out to me after discussing the case with him thoroughly. Please see his full history and physical exam. Related Data Home Medications ?Medication ?Instructions ?Recorded ?Confirmed No Known Home Medications 04/02/25 04/02/25 Allergies Allergy/AdvReac Type Severity Reaction Status Date / Time No Known Drug Allergies Allergy Verified 04/02/25 03:58 Opioid HPI Opioid Management Most Recent Opioid Data: Last Pain Scale 5 Today, 03:51 PFSH PFSH Social History Little interest or pleasure in doing things: not at all Feeling down, depressed, or hopeless: not at all Exam Constitutional Vital Signs, click to edit/add: Last Vital Signs Temp 98.0 F 04/02/25 03:51 Pulse 59 L 04/02/25 08:25 Resp 16 04/02/25 08:25 BP 128/73 04/02/25 08:25 Pulse Ox 99 04/02/25 08:25 O2 Del Method Room Air 04/02/25 03:51 Course Vital Signs Vital signs: Vital Signs Temperature 98.0 F 04/02/25 03:51 Pulse Rate 71 04/02/25 03:51 Respiratory Rate 20 04/02/25 03:51 Blood Pressure 170/100 H 04/02/25 03:51 Pulse Oximetry 97 04/02/25 03:51 Oxygen Delivery Method Room Air 04/02/25 03:51 Temperature 98.0 F 04/02/25 03:51 Pulse Rate 59 L 04/02/25 08:25 Respiratory Rate 16 04/02/25 08:25 Blood Pressure 128/73 04/02/25 08:25 Pulse Oximetry 99 04/02/25 08:25 Oxygen Delivery Method Room Air 04/02/25 03:51 Medical Decision Making [facility] Narrative Medical decision making narrative: CAT scan shows proximal bowel wall thickening which may represent enteritis with secondary ileus versus partial obstruction. He has had persistent vomiting here despite antiemetics. NG tube was ordered and placed but the patient pulled it out and refused replacement. I spoke to Dr. Soares at [facility] who is willing to see the patient when they are admitted to the hospitalist, and I have spoken to the hospitalist as well who accepts the patient. Treatment diagnosis and disposition were discussed with the patient. Differential Diagnosis Differential Diagnosis: Gastroenteritis, bowel obstruction, enteritis, ileitis, colitis Lab Data Lab results reviewed: Yes I reviewed the patient's lab results Labs: Lab Results 04/02/25 Range/Units 04:20 WBC 10.3 (4.0-11.0) 10^3/uL RBC 5.62 (4.70-6.10) 10^6/uL Hgb 16.6 (14.0-18.0) g/dL Hct 47.2 (42.0-54.0) % MCV 84.0 (80.0-94.0) fL MCH 29.5 (25.9-34.0) pg MCHC 35.2 (29.9-35.2) g/dL RDW 12.4 (11.0-15.0) % Plt Count 337 (150-450) 10^3/uL MPV 9.4 L (9.5-13.5) fL Neut % (Auto) 76.3 H (43.0-75.0) % Lymph % (Auto) 17.3 L (20.5-60.0) % [place] % (Auto) 5.6 (1.7-12.0) % Eos % (Auto) 0.2 L (0.9-7.0) % Baso % (Auto) 0.3 (0.2-2.0) % Neut # (Auto) 7.8 H (1.4-6.5) 10^3/uL Lymph # (Auto) 1.8 (1.2-3.8) 10^3/uL [place] # (Auto) 0.6 (0.3-0.8) 10^3/uL Eos # (Auto) 0.0 (0.0-0.7) 10^3/uL Baso # (Auto) 0.0 (0.0-0.1) 10^3/uL Abs Immat Gran (auto) 0.03 (0.00-0.03) 10^3/uL Imm/Tot Granulo (auto) 0.3 (0.0-0.5) % Sodium 136 (136-145) mmol/L Potassium 3.2 L (3.5-5.1) mmol/L Chloride 99 (98-107) mmol/L Carbon Dioxide 30.1 (21.0-32.0) mmol/L Anion Gap 10.1 BUN 17.0 (7.0-18.0) mg/dL Creatinine 1.07 (0.70-1.30) mg/dL Est GFR ( Amer) >60 (>=60 mL/min/1.73m^2) Est GFR (Non-Af Amer) >60 (>=60 mL/min/1.73m^2) BUN/Creatinine Ratio 15.9 Glucose 124 H (74-106) mg/dL Lactate 1.3 (0.4-2.0) mmol/L Calcium 9.6 (8.5-10.1) mg/dL Total Bilirubin 1.6 H (0.2-1.0) mg/dL AST 26 (15-37) U/L ALT 38 (16-63) U/L Alkaline Phosphatase 107 (46-116) U/L Troponin I High Sens 4.5 (4.0-76.1) pg/mL Total Protein 7.9 (6.4-8.2) g/dL Albumin 4.3 (3.4-5.0) g/dL Globulin 3.6 g/dL Albumin/Globulin Ratio 1.2 Lipase 18.0 (16.0-77.0) U/L Imaging Data CT scan - abdomen: Radiologist's impression: Proximal bowel wall thickening with distention up to 2.7 cm in diameter may represent enteritis with secondary ileus versus partial obstruction; moderate fecal load Discharge Plan Discharge Chief Complaint: Nausea/Vomiting/Diarrhea Clinical Impression: Nausea & vomiting, Partial obstruction of small intestine Patient Disposition: [facility] Time of Disposition Decision: 07:30 Discharge Location: [facility] Condition: Fair Mode of Transportation: EMS
--- NOTE | 2025-04-02 07:50 | PC.NURSE ---
this RN places NG tube into pt right nares, pt states he cannot stand NG and pulls NG tube out of nose. This RN advises Dr Bradford of NG refusal
[2025-04-02 08:25] VITALS: BP 128/73; PULSE 59; O2SAT 99
--- NOTE | 2025-04-02 08:30 | PC.NURSE ---
this RN explains seriousness of pt condition and advised against him leaving against medical advise, pt states he cannot stay in this room any longer, pt adamant that he is leaving.
--- NOTE | 2025-04-02 08:55 | PC.NURSE ---
pt states he wishes to sign out against medical advise, pt states his IV fell out , this RN has pt sign AMA form, verified pt does not any longer have IV in arm, pt ambulates to ER exit. Dr Bradford advised
== END 2025-04-02 08:58 | disposition left against medical advice (07) ==
PROVIDERS: Internal Medicine; Emergency Provider Emergency Medicine
DX: K56.600 Partial intestinal obstruction, unspecified as to cause (principal); Z53.29 Procedure and treatment not carried out because of patient's decision for other reasons; R11.2 Nausea with vomiting, unspecified
CPT/HCPCS: 36415; 71045; 74177; 80053; 81001; 83605; 83690; 84484; 85025; 96361; 96374; 96375; 99285; J2405; J2765; Q9967